=== PATIENT | female | born 1965 | race Caucasian/White ===

== ENCOUNTER → 2016-10-18 | Outpatient (CLI) | payer OTHER | LOC: BRMIMAGING 08:21 | DX: Z12.31 Encounter for screening mammogram for malignant neoplasm of breast (principal) | CPT/HCPCS: G0202 ==

== ENCOUNTER → 2017-11-27 | Outpatient (CLI) | payer OTHER | LOC: BRMIMAGING 11:44 | DX: Z12.31 Encounter for screening mammogram for malignant neoplasm of breast (principal) ==